=== PATIENT | female | born 1985 | race Caucasian/White ===

== ENCOUNTER 2017-05-25 16:23 | Inpatient (IN) | payer OTHER ==
[~2017-05-25] VITALS: Ht 170.2 cm; Wt 64.8 kg
[~2017-05-25 16:23] MED LIST: Bactrim Ds Tab1 EACH PO; Keflex500 MG PO
[2017-05-25 17:43] LABS: BASOPHILS ABSOLUTE AUTO 0.01 K/mm3 (0.00-0.23); BASOPHILS PERCENT AUTO 0 % (0-2); EOSINOPHILS ABSOLUTE AUTO 0.01 K/mm3 (0.00-0.68); EOSINOPHILS PERCENT AUTO 0 % (0-6); Hematocrit 31.8 % (33.0-51.0); Hemoglobin 10.6 g/dL (11.5-16.0); IMMATURE GRAN ABSOLUTE AUTO 0.01 K/mm3 (0.00-0.10); IMMATURE GRAN PERCENT AUTO 0 % (0-1); LYMPHOCYTES PERCENT AUTO 7 % (21-46); MONOCYTES ABSOLUTE AUTO 0.01 K/mm3 (0.16-1.47); MONOCYTES PERCENT AUTO 0 % (4-13); Mean Corpuscular HGB 29.1 pg (26.0-34.0); Mean Corpuscular HGB Conc 33.3 g/dL (31.5-36.5); Mean Corpuscular Volume 87 fL (80-100); NEUTROPHILS ABSOLUTE AUTO 2.73 K/mm3 (1.96-9.15); NEUTROPHILS PERCENT AUTO 92 % (41-73); RDW Coefficient Variation 12.2 % (11.7-14.2); RDW Standard Deviation 39.4 fL (35.1-46.3); Red Blood Cell Count 3.64 M/mm3 (3.80-5.20); White Blood Cell Count 2.97 K/mm3 (4.00-11.30)
[2017-05-25 17:45] LABS: Mean Platelet Volume 9.2 fL (9.1-12.4); Platelet Count 189 K/mm3 (150-400)
[2017-05-25 17:55] LABS: Source, Urine Catheter
[2017-05-25 17:59] LABS: Appearance, Urine Clear (Clear); Bilirubin, Urine Neg (Neg); Blood, Urine Neg (Neg); Color, Urine Yellow (P-Yellow); Glucose Qualitative, Urine Neg (Neg); Ketones, Urine Neg (Neg); Leukocyte Esterase, Urine Neg (Neg); Nitrite, Urine Neg (Neg); Protein, Urine Neg (Neg); Urobilinogen, Urine NORM (Normal)
[2017-05-25 18:00] LABS: Anion Gap 8 mmol/L (6-16); Blood Urea Nitrogen 16 mg/dL (8-24); Bun/Creatinine Ratio 19.9 (12.0-20.0); CO2, Blood 25 mmol/L (21-32); Chloride, Blood 106 mmol/L (98-108); Glomerular Filtration Rate >60 (60-); Glucose, Blood 93 mg/dL (70-99); Potassium, Blood 3.3 mmol/L (3.5-5.5); Sodium, Blood 139 mmol/L (136-145)
[2017-05-25 18:20] LABS: U Amphetamine Screen DETECTED; U Barbituate Screen Not Detected; U Benzodiazapine Screen Not Detected; U Buprenorphine Screen Not Detected; U Cannabinoids Screen Not Detected; U Cocaine Screen Not Detected; U Methadone Screen Not Detected; U Methamphetamine Screen DETECTED; U Opiates Screen DETECTED; U Oxycodone Screen Not Detected; U Phencyclidine Screen Not Detected; U Propoxyphene Screen Not Detected
[2017-05-26 07:07] LABS: BASOPHILS ABSOLUTE AUTO 0.04 K/mm3 (0.00-0.23); BASOPHILS PERCENT AUTO 0 % (0-2); Hematocrit 31.5 % (33.0-51.0); Hemoglobin 10.6 g/dL (11.5-16.0); LYMPHOCYTES ABSOLUTE AUTO 0.81 K/mm3 (0.84-5.20); LYMPHOCYTES PERCENT AUTO 6 % (21-46); MONOCYTES ABSOLUTE AUTO 0.74 K/mm3 (0.16-1.47); MONOCYTES PERCENT AUTO 5 % (4-13); Mean Corpuscular HGB 29.6 pg (26.0-34.0); Mean Corpuscular HGB Conc 33.7 g/dL (31.5-36.5); Mean Corpuscular Volume 88 fL (80-100); Mean Platelet Volume 9.8 fL (9.1-12.4); Platelet Count 202 K/mm3 (150-400); RDW Coefficient Variation 12.6 % (11.7-14.2); RDW Standard Deviation 40.6 fL (35.1-46.3); Red Blood Cell Count 3.58 M/mm3 (3.80-5.20); White Blood Cell Count 13.64 K/mm3 (4.00-11.30)
[2017-05-26 07:08] LABS: EOSINOPHILS ABSOLUTE AUTO 0.01 K/mm3 (0.00-0.68); EOSINOPHILS PERCENT AUTO 0 % (0-6); IMMATURE GRAN ABSOLUTE AUTO 0.07 K/mm3 (0.00-0.10); IMMATURE GRAN PERCENT AUTO 1 % (0-1); NEUTROPHILS ABSOLUTE AUTO 11.97 K/mm3 (1.96-9.15); NEUTROPHILS PERCENT AUTO 88 % (41-73)
[2017-05-26 07:27] LABS: Albumin, Blood 2.9 g/dL (3.4-5.0); Anion Gap 6 mmol/L (6-16); Blood Urea Nitrogen 14 mg/dL (8-24); Bun/Creatinine Ratio 19.6 (12.0-20.0); CO2, Blood 26 mmol/L (21-32); Calcium, Blood 7.5 mg/dL (8.5-10.1); Chloride, Blood 105 mmol/L (98-108); Creatinine, Blood 0.72 mg/dL (0.40-1.00); Glomerular Filtration Rate >60 (60-); Glucose, Blood 87 mg/dL (70-99); Phosphorus, Blood 2.5 mg/dL (2.5-4.9); Potassium, Blood 3.5 mmol/L (3.5-5.5); Sodium, Blood 137 mmol/L (136-145)
[2017-05-27 05:15] LABS: BASOPHILS ABSOLUTE AUTO 0.02 K/mm3 (0.00-0.23); BASOPHILS PERCENT AUTO 0 % (0-2); EOSINOPHILS ABSOLUTE AUTO 0.06 K/mm3 (0.00-0.68); EOSINOPHILS PERCENT AUTO 1 % (0-6); Hematocrit 28.5 % (33.0-51.0); Hemoglobin 9.5 g/dL (11.5-16.0); IMMATURE GRAN ABSOLUTE AUTO 0.04 K/mm3 (0.00-0.10); IMMATURE GRAN PERCENT AUTO 0 % (0-1); LYMPHOCYTES ABSOLUTE AUTO 1.75 K/mm3 (0.84-5.20); LYMPHOCYTES PERCENT AUTO 17 % (21-46); MONOCYTES ABSOLUTE AUTO 0.82 K/mm3 (0.16-1.47); MONOCYTES PERCENT AUTO 8 % (4-13); Mean Corpuscular HGB 29.7 pg (26.0-34.0); Mean Corpuscular HGB Conc 33.3 g/dL (31.5-36.5); Mean Corpuscular Volume 89 fL (80-100); NEUTROPHILS ABSOLUTE AUTO 7.42 K/mm3 (1.96-9.15); NEUTROPHILS PERCENT AUTO 73 % (41-73); Platelet Count 177 K/mm3 (150-400); RDW Standard Deviation 42.1 fL (35.1-46.3); White Blood Cell Count 10.11 K/mm3 (4.00-11.30)
[2017-05-27 06:59] LABS: Anion Gap 5 mmol/L (6-16); Blood Urea Nitrogen 8 mg/dL (8-24); Bun/Creatinine Ratio 15.2 (12.0-20.0); CO2, Blood 23 mmol/L (21-32); Calcium, Blood 7.6 mg/dL (8.5-10.1); Chloride, Blood 113 mmol/L (98-108); Creatinine, Blood 0.53 mg/dL (0.40-1.00); Glomerular Filtration Rate >60 (60-); Glucose, Blood 86 mg/dL (70-99); Sodium, Blood 141 mmol/L (136-145)
[2017-05-27] MEDS ORDERED: ACET325 PO (10:19)
== END 2017-05-27 17:10 | disposition home or self-care (01) | DRG 917 ==
LOC: ER 16:23 → PCU 19:39
PROVIDERS: Emergency Medicine; Family Medicine; Hospitalist
DX: T40.1X1A Poisoning by heroin, accidental (unintentional), initial encounter (principal); G92 Toxic encephalopathy; E87.6 Hypokalemia; F17.210 Nicotine dependence, cigarettes, uncomplicated; D72.819 Decreased white blood cell count, unspecified; D64.9 Anemia, unspecified; J02.9 Acute pharyngitis, unspecified; R50.9 Fever, unspecified; I95.9 Hypotension, unspecified; T43.621A Poisoning by amphetamines, accidental (unintentional), initial encounter; F15.10 Other stimulant abuse, uncomplicated; F11.10 Opioid abuse, uncomplicated
CPT/HCPCS: 36415; 71045; 80048; 80069; 81003; 81025; 83605; 85025; 87040; 93306; 96374; 99285; C1751; J1956; J2060; J2405; J3370; J3480; J7050; P9612

== ENCOUNTER → 2018-06-03 | Outpatient (CLI) | payer OTHER ==
[~2018-06-03] MED LIST changes: +ACET325 PO
[2018-06-03 15:17] LABS: BASOPHILS ABSOLUTE AUTO 0.02 K/mm3 (0.00-0.23); BASOPHILS PERCENT AUTO 0 % (0-2); EOSINOPHILS PERCENT AUTO 2 % (0-6); Hemoglobin 11.7 g/dL (11.5-16.0); IMMATURE GRAN ABSOLUTE AUTO 0.01 K/mm3 (0.00-0.10); IMMATURE GRAN PERCENT AUTO 0 % (0-1); LYMPHOCYTES ABSOLUTE AUTO 1.49 K/mm3 (0.84-5.20); LYMPHOCYTES PERCENT AUTO 23 % (21-46); MONOCYTES ABSOLUTE AUTO 0.46 K/mm3 (0.16-1.47); MONOCYTES PERCENT AUTO 7 % (4-13); Mean Corpuscular HGB 29.9 pg (26.0-34.0); Mean Corpuscular HGB Conc 33.4 g/dL (31.5-36.5); Mean Corpuscular Volume 90 fL (80-100); Mean Platelet Volume 9.7 fL (9.1-12.4); NEUTROPHILS PERCENT AUTO 68 % (41-73); Platelet Count 252 K/mm3 (150-400); RDW Coefficient Variation 12.6 % (11.7-14.2); RDW Standard Deviation 40.8 fL (35.1-46.3); Red Blood Cell Count 3.91 M/mm3 (3.80-5.20); White Blood Cell Count 6.58 K/mm3 (4.00-11.30)
[2018-06-03 15:34] LABS: Appearance, Urine Clear (Clear); Bilirubin, Urine Neg (Neg); Blood, Urine Neg (Neg); Color, Urine Yellow (P-Yellow); Glucose Qualitative, Urine Neg (Neg); Ketones, Urine Neg (Neg); Leukocyte Esterase, Urine Neg (Neg); Nitrite, Urine Neg (Neg); Protein, Urine Neg (Neg); Urobilinogen, Urine NORM (Normal); pH, Urine 6.5 (5.0-8.0)
[2018-06-03 17:18] LABS: U Amphetamine Screen Not Detected; U Barbituate Screen Not Detected; U Benzodiazapine Screen Not Detected; U Buprenorphine Screen DETECTED; U Cannabinoids Screen Not Detected; U Cocaine Screen Not Detected; U Methadone Screen Not Detected; U Methamphetamine Screen Not Detected; U Opiates Screen Not Detected; U Oxycodone Screen Not Detected; U Phencyclidine Screen Not Detected; U Propoxyphene Screen Not Detected
[2018-06-05 00:10] LABS: HBSAG SCREEN Negative (Negative)
== END | disposition home or self-care (01) ==
LOC: LAB SHORT 14:36 → LAB 14:36
PROVIDERS: Obstetrics & Gynecology
DX: Z34.81 Encounter for supervision of other normal pregnancy, first trimester (principal)
CPT/HCPCS: 81003; 84443; 85025; 86592; 86762; 87086; 87340; G0480

== ENCOUNTER → 2018-06-19 | Outpatient (CLI) | payer OTHER ==
[2018-06-23 15:07] LABS: CHLAMYDIA TRACHOMATIS, NAA Negative (Negative); HPV 16 Negative (Negative); HPV 18 Negative (Negative); HPV OTHER HR TYPES Negative (Negative); NEISSERIA GONORRHOEAE, NAA Negative (Negative)
== END | disposition home or self-care (01) ==
LOC: LAB SHORT 18:21 → LAB 18:21
PROVIDERS: Obstetrics & Gynecology
DX: Z36.89 Encounter for other specified antenatal screening (principal)
CPT/HCPCS: 87491; 87591; 87624; G0123

== ENCOUNTER 2018-07-04 06:20 | Day surgery (SDC) | payer OTHER ==
--- NOTE | 2018-07-04 09:20 | NUR ---
PT SLEEPY, ROUSES TO PHYSICAL STIMULI.
--- NOTE | 2018-07-04 09:49 | NUR ---
PT MORE AWAKE, FAMILY BACK TO ROOM. PT TAKING SIPS OF WATER.
--- NOTE | 2018-07-04 10:07 | NUR ---
PT HAS BEEN ABLE TO TOLERATE CRACKERS AND WATER. PO PAIN MEDICATION PROVIDED. REVIEWED DISCHARGE INSTRUCTIONS. Patient States Post-Procedure ride home has been arranged. SMALL AMOUNT OF RED VAGINAL DRAINAGE ON [place] PAD. HOME WITH FAMILY
[2018-07-04 15:09] LABS: Performing Lab SYMBIODX; Test Name PLOIDY FISH
--- NOTE | 2018-07-07 15:24 | NUR ---
07/07/18 1524 Michelle Dahl CHART VERIFICATIONS, EDITS.
== END 2018-07-04 10:07 | disposition home or self-care (01) ==
LOC: ORSCMMR 06:20
PROVIDERS: Obstetrics & Gynecology
PROC: 10A07Z6 Abortion of Products of Conception, Vacuum, Via Natural or Artificial Opening (ICD-10-PCS; principal; 2018-07-04 07:30)
DX: O02.1 Missed abortion (principal); F17.210 Nicotine dependence, cigarettes, uncomplicated; F31.9 Bipolar disorder, unspecified; Z79.899 Other long term (current) drug therapy
CPT/HCPCS: 88305; J1100; J1885; J2210; J2250; J2405; J2550; J2765; J3010; J7120

== ENCOUNTER → 2019-04-09 | Outpatient (CLI) | payer OTHER ==
[~2019-04-09] MED LIST changes: +BUPRENORPHIN-N1 EACH SL; +DOCU100 PO; +IBUP800 PO; +Percocet 7.5-31 EACH PO; +TRAZ50 PO
== END | disposition home or self-care (01) ==
LOC: LAB 16:45 → LAB SHORT 16:45
DX: Z34.93 Encounter for supervision of normal pregnancy, unspecified, third trimester (principal)
CPT/HCPCS: 87081; 87653

== ENCOUNTER 2019-04-27 08:00 | Inpatient (IN) | payer OTHER ==
[~2019-04-27] VITALS: Ht 172.7 cm; Wt 78.1 kg
[~2019-04-27 08:00] MED LIST changes: -BUPRENORPHIN-N1 EACH SL; -DOCU100 PO; -IBUP800 PO; -Percocet 7.5-31 EACH PO; -TRAZ50 PO
[2019-04-27 10:41] LABS: BASOPHILS ABSOLUTE AUTO 0.03 K/mm3 (0.00-0.23); BASOPHILS PERCENT AUTO 0 % (0-2); EOSINOPHILS ABSOLUTE AUTO 0.11 K/mm3 (0.00-0.68); EOSINOPHILS PERCENT AUTO 1 % (0-6); Hematocrit 31.7 % (33.0-51.0); Hemoglobin 10.6 g/dL (11.5-16.0); IMMATURE GRAN ABSOLUTE AUTO 0.04 K/mm3 (0.00-0.10); IMMATURE GRAN PERCENT AUTO 0 % (0-1); LYMPHOCYTES ABSOLUTE AUTO 1.85 K/mm3 (0.84-5.20); LYMPHOCYTES PERCENT AUTO 21 % (21-46); MONOCYTES ABSOLUTE AUTO 0.71 K/mm3 (0.16-1.47); MONOCYTES PERCENT AUTO 8 % (4-13); Mean Corpuscular HGB 29.6 pg (26.0-34.0); Mean Corpuscular HGB Conc 33.4 g/dL (31.5-36.5); Mean Corpuscular Volume 89 fL (80-100); Mean Platelet Volume 9.5 fL (9.1-12.4); NEUTROPHILS ABSOLUTE AUTO 6.21 K/mm3 (1.96-9.15); NEUTROPHILS PERCENT AUTO 70 % (41-73); Platelet Count 227 K/mm3 (150-400); RDW Coefficient Variation 12.2 % (11.7-14.2); RDW Standard Deviation 39.7 fL (35.1-46.3); Red Blood Cell Count 3.58 M/mm3 (3.80-5.20); White Blood Cell Count 8.95 K/mm3 (4.00-11.30)
[2019-04-27] MEDS ORDERED: BUPRENORPHIN-N1 EACH SL (11:50)
--- NOTE | 2019-04-27 16:27 | NUR ---
HERE WITH DECREASED MOVEMENT. TRACING MINIMUL VARIABLITY, NOT IMPROVED WITH POSTITION CHANGE OR IV FLUID. ADMIT FOR DELIVERY
--- NOTE | 2019-04-27 19:23 | NUR ---
04/27/191922 Jaky Ewing DELIVERY OF MALE AT 1907 BY [facility] WITH 1 POP OFF WITH A TIGHT NUCHAL x4. CORD CLAMP[facility]. CORD GASES AND CORD BLOOD COLLECTED. SEE PRIMARY EDUCATION PROFESSOR SUMMARY FOR WEIGHT AND APGARS. [facility] DELIVERED MANUALLY INTACT.
--- NOTE | 2019-04-27 22:03 | NUR ---
PIT RATE INCREASED FROM 25O ML/HR TO 500 ML/HR AFTER FUNDAL CHECK TO INCREASE FIRMNESS OF UTERUS
--- NOTE | 2019-04-27 22:06 | NUR ---
PATIENT MEDICATED AND PROVIDED HEATING PAD TO HELP WITH PAIN
--- NOTE | 2019-04-27 22:50 | NUR ---
BROUGHT HEATING PAD TO NURSERY FOR PATIENT TO USE. PATIENT STATES IT HELPS HER PAIN.
--- NOTE | 2019-04-27 22:52 | NUR ---
PATIENT TAKEN TO NURSERY BY WHEEL CHAIR AT 2230.
--- NOTE | 2019-04-28 01:03 | NUR ---
PATIENT BACK TO ROOM AT 0030. DRESSING OVER INCISION SATURATED, SOME OOZING ONTO BINDER, REINFORCED SITE WITH PAD AND REPLACED BINDER TIGHTLY TO PUT PRESSURE OVER WOUND. VITAL SIGNS STABLE AT THIS TIME.
--- NOTE | 2019-04-28 02:00 | NUR ---
REPLACED BINDER AND PAD OVER INCISION WITH ABD PAD. NO NEW DRAINAGE AT THIS TIME.
--- NOTE | 2019-04-28 03:23 | NUR ---
PATIENT SLEEPING AT THIS TIME
--- NOTE | 2019-04-28 04:40 | NUR ---
ASSUMED CARE FROM ANANDA BRUNER. PATIENT ON BEDREST. SCDS IN PLACE, MUKHERJEE PATENT AN DRAINING. ON ASSESSMENT PATIENT DRESSING SATURATED W/ DRY BLOOD. REINFORCED WITH ABD PAD. ABD PAD CLEAN AND DRY. WILL CONTINUE TO MONITOR.
[2019-04-28 06:05] LABS: Hemoglobin 7.9 g/dL (11.5-16.0); Mean Corpuscular HGB 30.5 pg (26.0-34.0); Mean Corpuscular HGB Conc 34.3 g/dL (31.5-36.5); Mean Corpuscular Volume 89 fL (80-100); Mean Platelet Volume 9.6 fL (9.1-12.4); Platelet Count 178 K/mm3 (150-400); RDW Coefficient Variation 12.1 % (11.7-14.2); RDW Standard Deviation 38.5 fL (35.1-46.3); Red Blood Cell Count 2.59 M/mm3 (3.80-5.20); White Blood Cell Count 7.78 K/mm3 (4.00-11.30)
--- NOTE | 2019-04-28 10:35 | NUR ---
Pt up to ambulate prior to fajardo d/c. Pt ambulated well feels as though she will be able to ambulate well to br when needed. Fajardo d/c'd. Pt medicated w/5 mg oxycodone. Will wait for pt to have urge to void and pain medication to take effect prior to getting up to shower.
[2019-04-28] MEDS ORDERED: Percocet 7.5-31 EACH PO (11:54)
[2019-04-28] MEDS ORDERED: TRAZ50 PO (11:55)
[2019-04-28] MEDS ORDERED: IBUP800 PO (11:55)
[2019-04-28] MEDS ORDERED: DOCU100 PO (11:56)
--- NOTE | 2019-04-28 12:17 | NUR ---
Pt sleeping soundly. Did not wake when RN entered room.
--- NOTE | 2019-04-28 16:25 | NUR ---
Printed d/c instructions and teaching reviewed w/pt and family. No acute changes t/o shift. Pt d/c'd home in wheelchair to care of family.
--- NOTE | 2019-04-30 15:34 | NUR ---
SARAH PHONE CALL BABY WAS TRANSPORTED TO [place]. MOM REPORTS THAT SHE IS DOING WELL. SHAUNNA REPORTS LOTS OF SWELLING BUT DENIES HNELEY/ VISUAL DISTURBANCES. ECOURAGED RESTING, ELEVATING FEET AND EXCERSISES FOR HER FEET TO HELP WITH SWELLING . MOM IS VOIDING WITHOUT DICFFICULTY AND HAS ONE SMALL STOOL WHICH SHE STATES IS COMMON FOR HER. PT. IS TAKING STOOL SOFTENERS, DISCUSSED TRYING [facility] OR MOM TO TRY AND HAVE ONE NORMAL STOOL. TO INCREASE FLUIS. MODD IS IMPROVING BUT DID S/S OF PPD WHICH ANGELI TO BE REPORTED TO IS PRESENT. PT. IS TAKING PNV. PT. TO CALL AND SCHEDULE [address] RIDER AND OFFERED TO SEE HER HERE IF SHE WOULD LIKE.
== END 2019-04-28 16:25 | disposition home or self-care (01) | DRG 787 ==
LOC: OBS 08:00 → BC 08:00 → OBS 11:02 → BC 11:04
PROVIDERS: ADMIT Obstetrics & Gynecology
PROC: 10D00Z1 Extraction of Products of Conception, Low, Open Approach (ICD-10-PCS; principal; 2019-04-27 16:45)
DX: O69.1XX0 Labor and delivery complicated by cord around neck, with compression, not applicable or unspecified (principal); O99.324 Drug use complicating childbirth; F11.20 Opioid dependence, uncomplicated; O76 Abnormality in fetal heart rate and rhythm complicating labor and delivery; O77.0 Labor and delivery complicated by meconium in amniotic fluid; Z3A.38 38 weeks gestation of pregnancy; Z37.0 Single live birth
CPT/HCPCS: 59025; 85025; 85027; C1751; J0690; J1885; J2250; J2590; J2765; J3010; J7030; J7120

== ENCOUNTER → 2019-06-11 | Outpatient (CLI) | payer OTHER ==
[~2019-06-11] MED LIST changes: +BUPRENORPHIN-N1 EACH SL; +DOCU100 PO; +IBUP800 PO; +Percocet 7.5-31 EACH PO; +TRAZ50 PO
== END | disposition home or self-care (01) ==
LOC: LAB SHORT 07:59 → PLD 07:59
DX: D22.61 Melanocytic nevi of right upper limb, including shoulder (principal); D22.5 Melanocytic nevi of trunk
CPT/HCPCS: 88305

== ENCOUNTER 2020-07-05 04:49 | Emergency (ER) | payer BC ==
[~2020-07-05] VITALS: Ht 167.6 cm; Wt 65.8 kg
[2020-07-05 07:23] LABS: BASOPHILS ABSOLUTE AUTO 0.03 K/mm3 (0.00-0.23); BASOPHILS PERCENT AUTO 1 % (0-2); EOSINOPHILS ABSOLUTE AUTO 0.05 K/mm3 (0.00-0.68); EOSINOPHILS PERCENT AUTO 1 % (0-6); Hematocrit 36.6 % (33.0-51.0); Hemoglobin 12.5 g/dL (11.5-16.0); IMMATURE GRAN ABSOLUTE AUTO 0.01 K/mm3 (0.00-0.10); IMMATURE GRAN PERCENT AUTO 0 % (0-1); LYMPHOCYTES ABSOLUTE AUTO 2.88 K/mm3 (0.84-5.20); LYMPHOCYTES PERCENT AUTO 54 % (21-46); MONOCYTES ABSOLUTE AUTO 0.35 K/mm3 (0.16-1.47); MONOCYTES PERCENT AUTO 7 % (4-13); Mean Corpuscular HGB 28.9 pg (26.0-34.0); Mean Corpuscular HGB Conc 34.2 g/dL (31.5-36.5); Mean Corpuscular Volume 85 fL (80-100); Mean Platelet Volume 9.1 fL (9.1-12.4); NEUTROPHILS ABSOLUTE AUTO 2.02 K/mm3 (1.96-9.15); NEUTROPHILS PERCENT AUTO 38 % (41-73); Platelet Count 282 K/mm3 (150-400); RDW Standard Deviation 36.7 fL (35.1-46.3); Red Blood Cell Count 4.32 M/mm3 (3.80-5.20); White Blood Cell Count 5.34 K/mm3 (4.00-11.30)
[2020-07-05 07:46] LABS: Alanine Aminotransfer (ALT/SGP 20 U/L (12-78); Albumin, Blood 4.1 g/dL (3.4-5.0); Alk Phos 60 U/L (50-136); Anion Gap 6 mmol/L (6-16); Aspartate Aminotrans (AST/SGOT 13 U/L (12-37); Bilirubin, Total 0.4 mg/dL (0.1-1.0); Blood Urea Nitrogen 21 mg/dL (8-24); Bun/Creatinine Ratio 23.8 (12.0-20.0); CO2, Blood 26 mmol/L (21-32); Chloride, Blood 107 mmol/L (98-108); Creatinine, Blood 0.88 mg/dL (0.40-1.00); Glomerular Filtration Rate >60 (60-); Glucose, Blood 75 mg/dL (70-99); Potassium, Blood 4.1 mmol/L (3.5-5.5); Sodium, Blood 139 mmol/L (136-145); Total Protein, Blood 8.1 g/dL (6.4-8.2)
[2020-07-05] MEDS ORDERED: SULTRIDS PO (10:43)
== END 2020-07-05 11:39 | disposition home or self-care (01) ==
LOC: ER 04:49
PROVIDERS: Emergency Medicine
DX: L03.114 Cellulitis of left upper limb (principal); L03.113 Cellulitis of right upper limb; R07.9 Chest pain, unspecified; F11.10 Opioid abuse, uncomplicated; Z88.0 Allergy status to penicillin
CPT/HCPCS: 36415; 71045; 80053; 83605; 83970; 84484; 85025; 85651; 87040; 93005; 93010; 93306; 99285-25

== ENCOUNTER 2020-09-14 20:58 | Emergency (ER) | payer BC ==
[~2020-09-14] VITALS: Ht 170.2 cm; Wt 63.5 kg
[~2020-09-14 20:58] MED LIST changes: +SULTRIDS PO
[2020-09-14] MEDS ORDERED: Bactrim Ds Tab1 EACH PO (23:15)
[2020-09-14] MEDS ORDERED: CEPH500 PO (23:15)
== END 2020-09-14 23:42 | disposition home or self-care (01) ==
LOC: ER 20:58
DX: L02.512 Cutaneous abscess of left hand (principal); F17.210 Nicotine dependence, cigarettes, uncomplicated; Z88.0 Allergy status to penicillin
CPT/HCPCS: 10061; 99282-25; A9270

== ENCOUNTER 2020-10-11 05:34 | Emergency (ER) | payer BC ==
[~2020-10-11] VITALS: Ht 170.2 cm; Wt 68.0 kg
[~2020-10-11 05:34] MED LIST changes: +CEPH500 PO
[2020-10-11] MEDS ORDERED: CLIN300 PO (06:53)
== END 2020-10-11 07:05 | disposition home or self-care (01) ==
LOC: ER 05:34
DX: L03.115 Cellulitis of right lower limb (principal); L02.415 Cutaneous abscess of right lower limb; Z88.0 Allergy status to penicillin; Z79.899 Other long term (current) drug therapy
CPT/HCPCS: 99283; A9270

== ENCOUNTER → 2021-12-04 | Outpatient (CLI) | payer OTHER ==
[~2021-12-04] MED LIST changes: +CLIN300 PO
[2021-12-06 16:11] LABS: HPV 16 Negative (Negative); HPV 18 Negative (Negative); HPV OTHER HR TYPES Negative (Negative)
== END | disposition home or self-care (01) ==
LOC: LAB SHORT 17:35 → LAB 17:35
PROVIDERS: Family Medicine
DX: Z01.419 Encounter for gynecological examination (general) (routine) without abnormal findings (principal)
CPT/HCPCS: 87624; G0123

== ENCOUNTER 2023-01-24 13:13 | Emergency (ER) | payer OTHER ==
[~2023-01-24] VITALS: Ht 170.2 cm; Wt 76.2 kg
[~2023-01-24 13:13] MED LIST changes: +Cyclobenzaprine5 MG PO; +LEVFLO500 PO; +METH10 PO
[2023-01-24 14:49] LABS: BASOPHILS ABSOLUTE AUTO 0.05 K/mm3 (0.00-0.23); BASOPHILS PERCENT AUTO 1 % (0-2); EOSINOPHILS PERCENT AUTO 1 % (0-6); Hematocrit 35.7 % (33.0-51.0); Hemoglobin 12.4 g/dL (11.5-16.0); IMMATURE GRAN ABSOLUTE AUTO 0.02 K/mm3 (0.00-0.10); IMMATURE GRAN PERCENT AUTO 0 % (0-1); LYMPHOCYTES ABSOLUTE AUTO 2.65 K/mm3 (0.84-5.20); LYMPHOCYTES PERCENT AUTO 36 % (21-46); MONOCYTES ABSOLUTE AUTO 0.49 K/mm3 (0.16-1.47); MONOCYTES PERCENT AUTO 7 % (4-13); Mean Corpuscular HGB 29.7 pg (26.0-34.0); Mean Corpuscular HGB Conc 34.7 g/dL (31.5-36.5); Mean Corpuscular Volume 86 fL (80-100); NEUTROPHILS ABSOLUTE AUTO 4.05 K/mm3 (1.96-9.15); NEUTROPHILS PERCENT AUTO 55 % (41-73); RDW Coefficient Variation 12.3 % (11.7-14.2); RDW Standard Deviation 38.3 fL (35.1-46.3); Red Blood Cell Count 4.17 M/mm3 (3.80-5.20); White Blood Cell Count 7.36 K/mm3 (4.00-11.30)
[2023-01-24 14:56] LABS: Albumin, Blood 4.2 g/dL (3.4-5.0); Albumin/Globulin Ratio 1.2 (0.8-1.8); Bilirubin, Total 0.4 mg/dL (0.1-1.0); Bun/Creatinine Ratio 17.5 (12.0-20.0); Calcium, Blood 9.6 mg/dL (8.5-10.1); Creatinine, Blood 0.97 mg/dL (0.40-1.00); Globulin, Blood 3.6 g/dL (2.2-4.0); Potassium, Blood 4.8 mmol/L (3.5-5.5); Total Protein, Blood 7.8 g/dL (6.4-8.2)
[2023-01-24 15:08] LABS: Mean Platelet Volume 9.7 fL (9.1-12.4); Platelet Count 321 K/mm3 (150-400)
[2023-01-24] MEDS ORDERED: TRAZ50 PO (15:22)
[2023-01-24 15:46] LABS: D-Dimer, Quantitative 0.25 mg/L FEU (0.00-0.52); Prothrombin Time Results 10.5 Sec (9.7-11.5)
[2023-01-24 15:57] VITALS: BP 122/67
[2023-01-24 16:16] LABS: Beta HCG, Quantitative, Serum <1 mIU/mL (0-3); Magnesium, Blood 2.5 mg/dL (1.6-2.4)
== END 2023-01-24 18:06 | disposition home or self-care (01) ==
LOC: ER 13:13
PROVIDERS: Emergency Medicine; Student in an Organized Health Care Education/Training Program
DX: I47.1 Supraventricular tachycardia (principal); Z88.0 Allergy status to penicillin; Z79.899 Other long term (current) drug therapy; G43.909 Migraine, unspecified, not intractable, without status migrainosus
CPT/HCPCS: 71045; 80053; 83735; 84100; 84443; 84484; 84702; 85025; 85379; 85610; 85730; 93005; 93010; 96360; 99285-25; A9270; J7030

== ENCOUNTER → 2023-06-11 | Outpatient (CLI) | payer OTHER ==
[2023-06-11 14:20] LABS: Source, Urine Clean Catch
[2023-06-11 15:29] LABS: Appearance, Urine Cloudy (Clear); Bilirubin, Urine Neg (Neg); Blood, Urine 1+ (Neg); Color, Urine Yellow (P-Yellow); Glucose Qualitative, Urine Neg (Neg); Ketones, Urine 2+ (Neg); Leukocyte Esterase, Urine Neg (Neg); Nitrite, Urine Pos (Neg); Protein, Urine 2+ (Neg); Urobilinogen, Urine NORM (Normal)
[2023-06-11 15:57] LABS: Bacteria Many /hpf; Squamous Epithelial Cells Many /hpf (Few)
[2023-06-11 15:58] LABS: Transitional Epithelial Cells Rare /hpf (0-Rare)
== END | disposition home or self-care (01) ==
LOC: LAB SHORT 14:14 → LAB 14:14
PROVIDERS: Obstetrics & Gynecology
DX: R35.0 Frequency of micturition (principal)
CPT/HCPCS: 81001; 87077; 87086; 87186

== ENCOUNTER → 2023-08-28 | Outpatient (CLI) | payer OTHER ==
[2023-08-28 18:56] LABS: Source, Urine Clean Catch
[2023-08-28 19:43] LABS: Appearance, Urine Turbid (Clear); Bilirubin, Urine Neg (Neg); Blood, Urine 3+ (Neg); Color, Urine Yellow (P-Yellow); Glucose Qualitative, Urine Neg (Neg); Ketones, Urine 1+ (Neg); Leukocyte Esterase, Urine 1+ (Neg); Nitrite, Urine Pos (Neg); Protein, Urine 2+ (Neg); Specific Gravity, Urine 1.025 (1.003-1.022); Urobilinogen, Urine NORM (Normal)
[2023-08-28 19:57] LABS: Amorphous Heavy (0-Heavy); Bacteria Many /hpf; Squamous Epithelial Cells Few /hpf (Few)
== END | disposition home or self-care (01) ==
LOC: LAB SHORT 18:55 → LAB 18:55
PROVIDERS: Advanced Practice Midwife
DX: R30.0 Dysuria (principal)
CPT/HCPCS: 81001; 87077; 87086; 87186

== ENCOUNTER 2024-07-16 16:23 | Emergency (ER) | payer OTHER ==
[~2024-07-16] VITALS: Ht 172.7 cm; Wt 72.6 kg
[2024-07-16 16:36] VITALS: BP 114/74
[2024-07-16] MEDS ORDERED: Methadone HCL 10 MG TAB PO ONE (17:05)
== END 2024-07-16 17:25 | disposition home or self-care (01) ==
LOC: ER 16:23
DX: Z76.0 Encounter for issue of repeat prescription (principal); F17.210 Nicotine dependence, cigarettes, uncomplicated; Z88.0 Allergy status to penicillin; Z79.899 Other long term (current) drug therapy; Z79.891 Long term (current) use of opiate analgesic
CPT/HCPCS: 99281; A9270

== ENCOUNTER 2024-09-09 19:50 | Emergency (ER) | payer OTHER ==
[~2024-09-09] VITALS: Ht 170.2 cm; Wt 68.0 kg
[2024-09-09 19:58] VITALS: BP 124/94
[2024-09-09] MEDS ORDERED: Methadone HCL 10 MG TAB PO ONE (20:00)
== END 2024-09-09 20:16 | disposition home or self-care (01) ==
LOC: ER 19:50
DX: Z76.89 Persons encountering health services in other specified circumstances (principal); F17.210 Nicotine dependence, cigarettes, uncomplicated; Z88.0 Allergy status to penicillin; Z79.899 Other long term (current) drug therapy
CPT/HCPCS: 99281; A9270

== ENCOUNTER 2024-09-10 14:16 | Emergency (ER) | payer OTHER ==
[~2024-09-10] VITALS: Ht 170.2 cm; Wt 68.0 kg
[2024-09-10 14:28] VITALS: BP 128/76
[2024-09-10] MEDS ORDERED: Methadone HCL 10 MG TAB PO ONE (14:35)
== END 2024-09-10 15:17 | disposition home or self-care (01) ==
LOC: ER 14:16
DX: Z76.0 Encounter for issue of repeat prescription (principal); F17.210 Nicotine dependence, cigarettes, uncomplicated; Z79.899 Other long term (current) drug therapy; Z88.0 Allergy status to penicillin
CPT/HCPCS: 99281; A9270